=== PATIENT | female | born 1950 | race Caucasian/White ===

== ENCOUNTER 2018-08-27 10:17 | Outpatient (CLI) | payer OTHER, SELFPAY ==
[2018-08-27 13:00] LABS: Iron 78 ug/dL (50-175); Total Iron Binding Capacity 281 ug/dL (250-450); Transferrin Sat 28 % (15-50)
[2018-08-27 13:25] LABS: ALT 21 U/L (12-78); AST 17 U/L (15-37); Albumin 3.9 g/dL (3.4-5.0); Alkaline Phosphatase 97 U/L (46-116); Anion Gap 8.8 mmol/L (3-11); BUN 15 mg/dL (7-18); Bilirubin, Total 0.4 mg/dL (0.2-1.0); CO2 29.2 mmol/L (21.0-32.0); CREATININE 0.88 mg/dL (0.55-1.02); Chloride 104 mmol/L (98-107); Ferritin 148 ng/mL (8-388); Glucose 118 mg/dL (70-100); Sodium 142 mmol/L (136-145); TSH 2.17 uIU/mL (0.358-3.74); Total Protein 7.4 g/dL (6.4-8.2); Vitamin B12 394 pg/mL (193-986)
== END 2018-08-27 10:37 ==
PROVIDERS: PCP Family Medicine; Visit Provider Family Medicine
DX: Z86.2 Personal history of diseases of the blood and blood-forming organs and certain disorders involving the immune mechanism (principal); Z98.890 Other specified postprocedural states; E05.90 Thyrotoxicosis, unspecified without thyrotoxic crisis or storm
CPT/HCPCS: 36415; 80053; 82607; 82728; 83540; 83550; 84443

== ENCOUNTER 2019-09-04 01:42 | Outpatient (CLI) | payer OTHER, SELFPAY ==
--- NOTE | 2019-09-04 07:30 | DI.MAMMO_ITS ---
EXAM: MAMMO SCREENING CLINICAL HISTORY: screening,Z12.39 TECHNIQUE: Mammograms were interpreted according to the usual protocol including computer analysis w S B E CAD system, tomosynthesis and C-view imaging. COMPARISON: FINDINGS: The breasts are moderate density with fairly symmetrical distribution of fibroglandular tissue. No d ominant mass is identified in either breast. There is a new group of microcalcifications of the retr oareolar portion of the right breast, these appear to be mostly punctate but are not ideally visualiz ed. Additional magnification spot compression views of this area are requested for further evaluatio n. No other significant change in appearance comparison with prior studies including August 2017. IMPRESSION: New indeterminate group of microcalcifications of the retroareolar portion of the right breast. [place] tional mammographic views breast ultrasound requested as described above. BI-RADS Category 0 - Assessment Incomplete: Need additional imaging evaluation Breast Density - Category B - Scattered areas of fibroglandular density
--- NOTE | 2019-09-04 08:00 | DI.CTLCSR_ITS ---
EXAM: CT CHEST LUNG CANCER SCREEN CLINICAL HISTORY: Screening for lung cancer,current smoker, F17.210 TECHNIQUE: COMPARISON: No exams were available for comparison FINDINGS: CT examination of the chest was performed utilizing low-dose lung cancer screening protocol. There a ppear to be changes of moderate central lobular emphysema. There are scattered minimal ground-glass opacities. Additionally there is a 23 millimeter in diameter ground-glass opacity of the right upper lobe with a 4 millimeter solid nodular component. This would be categorized as a part solid nodule, lung rads category 3. No additional suspicious nodules seen. Tracheobronchial tree appears intact. No mediastinal or master r adenopathy. No pleural effusion. Images obtained through the upper abdomen show unremarkable appe arance of visualized portions of liver spleen right and left adrenals. IMPRESSION: Part solid nodule of the right upper lobe, 23 millimeter ground-glass component, 4 millimeter solid n odular component. Lung RADS Cat 3 - Probably Benign: Probably benign finding(s) - short term follow-up suggested; inclu de nodules with a low likelihood of becoming a clinically active cancer. Six-month follow-up LDCT re commended.
== END 2019-09-04 02:02 ==
PROVIDERS: PCP Family Medicine; Visit Provider Family Medicine
DX: Z12.31 Encounter for screening mammogram for malignant neoplasm of breast (principal); R92.8 Other abnormal and inconclusive findings on diagnostic imaging of breast; Z12.2 Encounter for screening for malignant neoplasm of respiratory organs; F17.210 Nicotine dependence, cigarettes, uncomplicated; J98.4 Other disorders of lung; J43.8 Other emphysema
CPT/HCPCS: 77063; 77067; G0297

== ENCOUNTER 2019-09-09 03:07 | Outpatient (CLI) | payer OTHER, SELFPAY ==
[2019-09-09 09:25] LABS: ALT 23 U/L (14-59); AST 19 U/L (15-37); Albumin 3.8 g/dL (3.4-5.0); Alkaline Phosphatase 87 U/L (46-116); Anion Gap 7.2 mmol/L (3-11); BUN 17 mg/dL (7-18); Bilirubin, Total 0.3 mg/dL (0.2-1.0); CO2 28.8 mmol/L (21.0-32.0); Calcium 8.7 mg/dL (8.5-10.1); Calculated LDL 123 mg/dL (<100); Chloride 104 mmol/L (98-107); Cholesterol 194 mg/dL (<200); Glucose 132 mg/dL (74-106); HDL Cholesterol 39 mg/dL (40-60); Potassium 4.5 mmol/L (3.5-5.1); Sodium 140 mmol/L (136-145); TSH 1.69 uIU/mL (0.36-3.74); Triglyceride 162 mg/dL (<150)
== END 2019-09-09 03:27 ==
PROVIDERS: PCP Family Medicine; Visit Provider Family Medicine
DX: I10 Essential (primary) hypertension (principal); E05.90 Thyrotoxicosis, unspecified without thyrotoxic crisis or storm
CPT/HCPCS: 36415; 80053; 80061; 84443

== ENCOUNTER 2019-09-11 02:18 | Outpatient (CLI) | payer OTHER, SELFPAY ==
--- NOTE | 2019-09-11 | DI.MAMMO_ITS ---
EXAM: MG MAMMO SCREEN CALL BACK UNI CLINICAL HISTORY: F/U MAMMO, NEW GROUP OF MICROCALCIFICATIONS RT. TECHNIQUE: Craniocaudal and mediolateral oblique Full Field Digital Mammography views of the right b reast with Computer Aided Diagnosis followed by Tomosynthesis and right breast ultrasound. COMPARISON: US US BREAST RT LIMITED from 09/11/2019 FINDINGS: Mammography/Tomosynthesis: Masses/Architectural Distortion: None seen. Microcalcifictions: There is again seen a collection of punctate calcifications in the upper outer qu adrant of the right breast. No definite pleomorphism is seen at this time. Calcifications have incr eased in number compared to the prior examination from 2018. No associated soft tissue mass or archi tectural distortion is seen. Skin Thickening/Nipple Retraction: None. Right breast US: Echotexture: Normal appearance of the glandular tissue. Shadowing: No suspicious foci. Cyst: 0.3 cm cyst at the 10 o'clock position of the right breast 2 cm from the nipple. Solid lesions: There is a focus of glandular tissue at the 12 o'clock position 1 cm from the nipple. No suspicious mass is seen at this time. Ductal dilation: None. IMPRESSION: 1. No definite evidence of malignancy is noted at this time. 2. Follow-up mammogram and ultrasound in 3 months is recommended. 3. The findings were discussed with the patient on the date of the examination. BI-RADS Category 3 - Probably Benign Finding: Recommend follow-up mammography in 3 months Breast Density - Category B - Scattered areas of fibroglandular density A negative radiographic report should not delay biopsy if a dominant or clinically suspicious mass is present. Up to ten percent of cancers are not identified on mammography. A negative report may reinforce clinical impression. Adenosis and dense breasts may obscure an underlying neoplasm. False positive reports average 6 to 10%. Patient will receive a letter notifying them of these results.
== END 2019-09-11 02:38 ==
PROVIDERS: PCP Family Medicine; Visit Provider Family Medicine
DX: Z12.31 Encounter for screening mammogram for malignant neoplasm of breast (principal); R92.8 Other abnormal and inconclusive findings on diagnostic imaging of breast; N60.01 Solitary cyst of right breast; N60.81 Other benign mammary dysplasias of right breast
CPT/HCPCS: 76642; 77063; 77067

== ENCOUNTER 2019-10-11 02:21 | Outpatient (CLI) | payer OTHER, SELFPAY ==
[2019-10-11 13:01] LABS: Hemoglobin A1C 6.7 % (3.8-5.6)
[2019-10-11 13:03] LABS: Anion Gap 9.9 mmol/L (3-11); BUN 17 mg/dL (7-18); CO2 26.1 mmol/L (21.0-32.0); CREATININE 1.05 mg/dL (0.55-1.02); Calcium 9.1 mg/dL (8.5-10.1); Chloride 105 mmol/L (98-107); Estimated GFR 51.81 (mL/min/1.73m2); Glucose 112 mg/dL (74-106); Potassium 4.2 mmol/L (3.5-5.1); Sodium 141 mmol/L (136-145)
== END 2019-10-11 02:41 ==
PROVIDERS: PCP Family Medicine; Visit Provider Family Medicine
DX: E11.65 Type 2 diabetes mellitus with hyperglycemia (principal)
CPT/HCPCS: 36415; 80048; 83036

== ENCOUNTER 2019-12-11 05:31 | Outpatient (CLI) | payer OTHER, SELFPAY ==
[2019-12-11 13:22] LABS: Anion Gap 3.6 mmol/L (3-11); BUN 11 mg/dL (7-18); CO2 31.4 mmol/L (21.0-32.0); Calcium 8.6 mg/dL (8.5-10.1); Chloride 106 mmol/L (98-107); Estimated GFR 54.81 (mL/min/1.73m2); Glucose 110 mg/dL (74-106); Potassium 4.6 mmol/L (3.5-5.1); Sodium 141 mmol/L (136-145)
[2019-12-11 13:51] LABS: Hemoglobin A1C 6.2 % (<5.7)
== END 2019-12-11 05:51 ==
PROVIDERS: PCP Family Medicine; Visit Provider Family Medicine
DX: R73.9 Hyperglycemia, unspecified (principal)
CPT/HCPCS: 36415; 80048; 83036

== ENCOUNTER 2019-12-24 00:45 | Outpatient (CLI) | payer OTHER, SELFPAY ==
--- NOTE | 2019-12-24 | DI.MAMMO_ITS ---
EXAM: MG MAMMO DIAGNOSTIC UNI CLINICAL HISTORY: F/U ABNL MAMMO AND US, 3 MONTH F/U,R92.8,FOCUS OF GLANDULAR TISSUE TECHNIQUE: Spot compression views including C- View and tomographic imaging were performed. Spot ma gnification views were also performed for the pre previously noted calcifications in the subareolar t issue. COMPARISON: 2011 through 11 September 2019. FINDINGS: The breasts are composed of scattered fibroglandular densities, Breast Density category B. Spot magnification views were also performed. No suspicious masses or suspicious microcalcifications are seen. Benign, punctate calcifications are again noted. A biopsy marker clip is noted in the in ferior breast. . IMPRESSION: BI-RADS Category 2 - Benign Findings Yearly screening mammography is recommended. Breast Density - Category B, scattered fibroglandular densities.
== END 2019-12-24 01:05 ==
PROVIDERS: PCP Family Medicine; Visit Provider Family Medicine
DX: R92.8 Other abnormal and inconclusive findings on diagnostic imaging of breast (principal); R92.1 Mammographic calcification found on diagnostic imaging of breast
CPT/HCPCS: 77061; 77065; G0279

== ENCOUNTER 2020-02-13 00:43 | Outpatient (CLI) | payer OTHER, SELFPAY ==
--- NOTE | 2020-02-13 06:15 | DI.CT_ITS ---
EXAM: CT CHEST WO CLINICAL HISTORY: 6 mo f/u OF ABNORMAL TEST,NODULES TECHNIQUE: Imaging Protocol: Axial computed tomography images with coronal and sagittal reformatted images were created and reviewed CONTRAST MATERIAL: No IV contrast COMPARISON: CT CT CHEST LUNG CANCER SCREEN from 09/04/2019 FINDINGS: Lungs: There is again noted the previously described ground-glass infiltrate in the right upper lobe which show an exhibits minimal change from the prior study and there is 2nd distal smaller 4 x 5 mill imeter ground-glass nodular infiltrate in the right upper lobe just anterior to this finding which is also unchanged.. There are no new additional ground-glass infiltrates in either lung field. No new confluent infiltrates.. No pleural effusions. No significant findings in trachea mainstem bronchi. No bronchiectasis. Mediastinum: There is no obvious hilar nor mediastinal evident on this noninfused study. The thyroid gland is again noted be enlarged. No axillary adenopathy. Cardiac: Heart size upper normal. There is no pericardial effusion. Caliber of the thoracic aorta i s within normal limits. The lower most images of this chest study reveal no obvious adrenal masses. However, there is a subt le area of hypodensity in the partially visualize right hepatic lobe noted which measures approximate ly 3.0 x 2.3 centimetres, of difficult to evaluate on a noninfused study. Osseous: There are no lytic osseous lesions identified. IMPRESSION: Relatively stable appearance of the previously described ground-glass nodular infiltrate in the right upper lobe. There is also a 2nd smaller ground-glass nodular infiltrate just anterior to this findi ng, also in the right upper lobe and also unchanged. Despite absence of obvious progression and abse nce of in new nodules these right upper lobe findings are still suspicious and require close follow-u p to rule out neoplasm. There are no pleural effusions and no obvious intrathoracic adenopathy evident on this noninfused jessica dy. Very subtleabnormal 3 x 2.3 centimeter area and in the right hepatic lobe incidentally noted, very di fficult to evaluate without IV contrast. This also requires close follow-up to rule out hepatic lesi on at this level. There are no osseous lesions. RADIATION DOSE DELIVERED: 73.65mGy.cm Total DLP DATA REPOSITORY: All CT scans at this facility are submitted to the National Radiology Data Registry (NRDR) Dose Index Registry (DIR) with the [employer] (ACR). RADIATION OPTIMIZATION: All CT scans at this facility use at least one of these dose optimization te chniques: automated exposure control; mA and/or kV adjustment per patient size (includes targeted exa ms where dose is matched to clinical indication); or iterative reconstruction.
== END 2020-02-13 01:03 ==
PROVIDERS: PCP Family Medicine; Visit Provider Family Medicine
DX: R91.8 Other nonspecific abnormal finding of lung field (principal); R93.89 Abnormal findings on diagnostic imaging of other specified body structures
CPT/HCPCS: 71250

== ENCOUNTER 2020-03-10 00:58 | Outpatient (CLI) | payer OTHER, SELFPAY ==
--- NOTE | 2020-03-10 07:00 | DI.US_ITS ---
EXAM: US ABDOMEN CLINICAL HISTORY: subtle abnormal area R hepatic lobe on CT,r91.8 TECHNIQUE: Ultrasound abdomen performed using standard protocol. COMPARISON: CT CT CHEST LUNG CANCER SCREEN from 09/04/[address] CHEST LUNG CANCER SCREEN from 09/04/[address] CHEST WO from 02/13/2020 FINDINGS: LIVER: Normal size and echogenicity. There is a 3.7 x 1.7 x 2.1 centimeter mildly hyperechoic lesion in the posterior right lobe of the liver, corresponding to the abnormality seen on CT. The findings may represent a hemangioma.. GALLBLADDER: No evidence of cholelithiasis. No evidence of wall thickening. No pericholecystic fluid identified. 2 millimeter polyp near the neck. SANTOYO'S SIGN: Negative. BILIARY SYSTEM: No intrahepatic or extrahepatic biliary ductal dilation. KIDNEYS: Kidneys are symmetric in size. No evidence of renal calculi. No evidence of hydronephrosis. No renal mass or cyst identified. PANCREAS: Normal where visualized. SPLEEN: Not enlarged. ABDOMINAL AORTA AND IVC: Visualized portions normal caliber. ASCITES: None seen. IMPRESSION: 3.7 centimeter hyperechoic liver lesion may represent a hemangioma. Multi phase contrast enhanced CT could be considered for further evaluation. DATA REPOSITORY:
[2020-03-10 09:09] LABS: Hemoglobin A1C 6.4 % (<5.7)
[2020-03-10 09:44] LABS: ALT 19 U/L (14-59); AST 14 U/L (15-37); Albumin 3.9 g/dL (3.4-5.0); Alkaline Phosphatase 97 U/L (46-116); Anion Gap 5.5 mmol/L (3-11); BUN 15 mg/dL (7-18); Bilirubin, Direct 0.08 mg/dL (0.00-0.20); Bilirubin, Total 0.4 mg/dL (0.2-1.0); CO2 30.5 mmol/L (21.0-32.0); CREATININE 0.99 mg/dL (0.55-1.02); Calcium 8.8 mg/dL (8.5-10.1); Chloride 105 mmol/L (98-107); Estimated GFR 55.45 (mL/min/1.73m2); Glucose 123 mg/dL (74-106); Potassium 4.4 mmol/L (3.5-5.1); Sodium 141 mmol/L (136-145); Total Protein 7.2 g/dL (6.4-8.2)
== END 2020-03-10 01:18 ==
LOC: DI 08:34 → LBO 08:37 → DI 08:41
PROVIDERS: PCP Family Medicine; Visit Provider Family Medicine
DX: K76.89 Other specified diseases of liver (principal); I10 Essential (primary) hypertension; R73.9 Hyperglycemia, unspecified
CPT/HCPCS: 36415; 80053; 80076; 76700; 83036

== ENCOUNTER 2020-07-20 08:49 | Outpatient (CLI) | payer OTHER, SELFPAY ==
[2020-07-20 11:42] LABS: Hemoglobin A1C 6.5 % (<5.7)
[2020-07-20 11:43] LABS: ALT 21 U/L (14-59); AST 16 U/L (15-37); Albumin 4.1 g/dL (3.4-5.0); Alkaline Phosphatase 103 U/L (46-116); Anion Gap 9.3 mmol/L (3-11); BUN 18 mg/dL (7-18); Bilirubin, Total 0.4 mg/dL (0.2-1.0); CO2 28.7 mmol/L (21.0-32.0); Calcium 9.1 mg/dL (8.5-10.1); Chloride 106 mmol/L (98-107); Estimated GFR 54.66 (mL/min/1.73m2); Glucose 127 mg/dL (74-106); Sodium 144 mmol/L (136-145); Total Protein 7.7 g/dL (6.4-8.2)
[2020-07-20 12:01] LABS: Calculated LDL 144 mg/dL (<100); Cholesterol 213 mg/dL (<200); HDL Cholesterol 47 mg/dL (40-60); Triglyceride 113 mg/dL (<150)
== END 2020-07-20 08:50 | disposition home or self-care (01) ==
LOC: LOS 08:49
PROVIDERS: PCP Family Medicine; Visit Provider Family Medicine
DX: I10 Essential (primary) hypertension (principal); E11.65 Type 2 diabetes mellitus with hyperglycemia
CPT/HCPCS: 36415; 80053; 80061; 83036

== ENCOUNTER 2020-08-18 02:22 | Outpatient (CLI) | payer OTHER, SELFPAY ==
--- NOTE | 2020-08-18 06:30 | DI.US_ITS ---
Exam(s) US ABDOMEN EXAM: US ABDOMEN CLINICAL HISTORY: 3.7cm hyperechoic post.right lobe of liver,LIVER LESION,K76.9 TECHNIQUE: Ultrasound abdomen performed using standard protocol. COMPARISON: CT CT CHEST WO from 02/13/2020 US US ABDOMEN from 03/10/2020 FINDINGS: ABDOMINAL AORTA AND IVC: Visualized portions normal caliber. PANCREAS: Normal where visualized. LIVER: The liver shows diffuse increased echogenicity suggesting hepatic steatosis. There is again s een a echogenic mass in the right lobe of the liver. It measures 3.7 x 3.3 x 2.5 cm on the current e xamination. This discrepancy in measurements may be in part be due to measuring technique. But an i ncrease in size cannot be excluded. Hepatopedal flow in the Portal Vein. The liver measures 13.2 cm in length. GALLBLADDER: No evidence of cholelithiasis. No evidence of wall thickening. No pericholecystic fluid identified. BILIARY SYSTEM: Common bile duct measures < 7 mm. No intrahepatic biliary ductal dilation. SANTOYO'S SIGN: Negative. KIDNEYS: Kidneys are symmetric in size. No evidence of renal calculi. No evidence of hydronephrosis. No renal mass or cyst identified. SPLEEN: Not enlarged. ASCITES: None seen. IMPRESSION: Echogenic mass is again seen in the right lobe of the liver. Further evaluation with a CT scan of th e abdomen using the hepatic hemangioma protocol is recommended. DATA REPOSITORY:
== END 2020-08-18 02:42 ==
PROVIDERS: PCP Family Medicine; Visit Provider Family Medicine
DX: K76.89 Other specified diseases of liver (principal); K76.0 Fatty (change of) liver, not elsewhere classified
CPT/HCPCS: 76700

== ENCOUNTER 2020-09-24 01:36 | Outpatient (CLI) | payer OTHER, SELFPAY ==
--- NOTE | 2020-09-24 07:00 | DI.CT_ITS ---
Exam(s) CT ABDOMEN WO/W EXAM: CT ABDOMEN WO/W CLINICAL HISTORY: 3.7cm hyperechoic liver lesion seen on ultrasound,k76.9. TECHNIQUE: Imaging Protocol: Axial computed tomography images with coronal and sagittal reformatted images were created and reviewed CONTRAST MATERIAL: Intravenous: Omnipaque 350 Contrast volume:100 ml Oral: None COMPARISON: US US ABDOMEN from 08/18/2020 FINDINGS: VISUALIZED LUNG BASES: There is no ascites. LIVER: There is a lesion in the right hepatic lobe which corresponds to that described on the recent ultrasound. The enhancement pattern is consistent with this being a cavernous hemangioma. There is also 2nd smaller finding in the right hepatic lobe slightly lower down and more medially located. Th is also exhibits dense min pattern consistent with a benign hemangioma. There are no other focal hep atic findings. No dilatation of intrahepatic ducts GALLBLADDER/BILIARY: No obvious gallbladder pathology. CBD is not dilated. PANCREAS: No evidence of pancreatic mass nor dilatation of the pancreatic duct. SPLEEN: Spleen is not enlarged. There are no intrasplenic lesions. Splenic and portal veins are vela nt. ADRENALS: There are no significant adrenal masses. KIDNEYS: No calculi nor hydronephrosis. No solid renal masses. No cysts evident. ABDOMINAL AORTA: Abdominal aorta is not enlarged. LYMPH NODES: There is no retroperitoneal nor paraaortic adenopathy. ABDOMINAL WALL: No evidence of significant anterior abdominal wall hernia. GI: There is no evidence of bowel obstruction. OSSEOUS: No significant osseous lesions. IMPRESSION: 1. There are 2 findings in the right hepatic lobe as described above. Both exhibit enhancement denise cteristics of benign hemangiomas. 2. To be prudent I recommend repeat ultrasound examination in 6 months to ensure size stability. 3. No other focal incidental findings in the abdomen and no ascites. 4. Please note that the pelvis was not scanned. RADIATION DOSE DELIVERED: 1,309.52mGy.cm Total DLP DATA REPOSITORY: All CT scans at this facility are submitted to the National Radiology Data Registry (NRDR) Dose Index Registry (DIR) with the [employer] (ACR). RADIATION OPTIMIZATION: All CT scans at this facility use at least one of these dose optimization te chniques: automated exposure control; mA and/or kV adjustment per patient size (includes targeted exa ms where dose is matched to clinical indication); or iterative reconstruction.
[2020-09-24] MEDS: Omnipaque 350 MG/ML 100 ML BTL IV (09:01)
[2020-09-24] MEDS: Normal Saline - Diluent 50 ML VIAL IV (09:02)
== END 2020-09-24 01:56 ==
PROVIDERS: PCP Family Medicine; Visit Provider Family Medicine
DX: D18.09 Hemangioma of other sites (principal)
CPT/HCPCS: 74170; J3490

== ENCOUNTER 2020-11-05 04:06 | Outpatient (CLI) | payer OTHER, SELFPAY ==
[2020-11-05] MEDS: Albuterol HFA 18 GM 200 PUFF INH IH (08:53)
[2020-11-05] MEDS: Inhaler, Assist Device 1 EACH MC (08:53)
--- NOTE | 2020-11-06 11:38 | PFT_ITS ---
Date of service: 11/05/20 Time of Service: 07:59 Pulmonary Function Test Result Requesting Provider Jeremiah Interpretation Spirometry: There is no airflow limitation. The FVC is reduced. There was a significant bronchodilator effect. The flow volume loop and volume-time curve are suggestive of airflow limitation. Lung Volumes: There is some evidence of air trapping but otherwise lung volumes are normal. Diffusion Capacity: Diffusion is normal. Airway Pressure: Airways resistance is normal. Impression There is mildly reduced FVC with normal lung volumes as well as a significant bronchodilator effect. Given the appearance of the flow volume loop and volume- time curve there may be some degree of airflow limitation present. Clinical Correlation therefore is recommended.
== END 2020-11-05 04:07 | disposition home or self-care (01) ==
LOC: RT 04:06
PROVIDERS: PCP Family Medicine; Visit Provider Student in an Organized Health Care Education/Training Program
DX: R91.8 Other nonspecific abnormal finding of lung field (principal); F17.210 Nicotine dependence, cigarettes, uncomplicated
CPT/HCPCS: 94060; 94726; 94729

== ENCOUNTER 2020-11-09 01:28 | Outpatient (CLI) | payer OTHER, SELFPAY ==
--- NOTE | 2020-11-09 07:30 | DI.MAMMO_ITS ---
Exam(s) MAMMO SCREENING EXAM: MAMMO SCREENING CLINICAL HISTORY: screening,Z12.39 TECHNIQUE: Bilateral full field digital CC and MLO mammographic images were obtained with 3D tomosyn thesis and utilizing computer aided detection (CAD). COMPARISON: Available for comparison. FINDINGS: Masses/Architectural Distortion: None seen. A biopsy clip is again seen in the outer left breast. Microcalcifications: No suspicious pleomorphic-type are seen. Skin Thickening/Nipple Retraction: None. IMPRESSION: 1. No significant interval change with no specific features of malignancy noted. 2. Unless there is more urgent need, screening mammography is recommended, as per [employer] guidelines. BI-RADS Category 1 - Negative Breast Density - Category B - Scattered areas of fibroglandular density Breast density category C or D implies that the patient has dense breast tissue. Dense breast tissue is very common and is not abnormal but dense breast tissue can make it harder to find cancer on a ma mmogram. Also, dense breast tissue may increase their breast cancer risk. This information about the result of the mammogram report was provided to the patient to raise their awareness. Use this report when you speak with the patient about their risks for breast cancer, which includes their family hist ory. At that time, you may recommend for more screening tests (Ultrasound or MRI) as they might be us eful based on their risk. A negative radiographic report should not delay biopsy if a dominant or clinically suspicious mass is present. Up to ten percent of cancers are not identified on mammography. A negative report may reinforce clinical impression. Adenosis and dense breasts may obscure an underlying neoplasm. False positive reports average 6 to 10%. Patient will receive a letter notifying them of these results.
== END 2020-11-09 01:48 ==
PROVIDERS: PCP Family Medicine; Visit Provider Family Medicine
DX: Z12.31 Encounter for screening mammogram for malignant neoplasm of breast (principal)
CPT/HCPCS: 77063; 77067

== ENCOUNTER 2020-11-09 03:54 | Outpatient (CLI) | payer OTHER, SELFPAY ==
[2020-11-09 09:53] LABS: COMMENT (LAB VIEW ONLY) 168.68 mg/dL; Microalb ug/mg Crea 7.8 ug/mg Cr
[2020-11-09 10:25] LABS: Hemoglobin A1C 6.3 % (<5.7)
[2020-11-09 10:45] LABS: Calculated LDL 108 mg/dL (<100); Cholesterol 171 mg/dL (<200); HDL Cholesterol 43 mg/dL (40-60); TSH (W/Ref FT4) 1.65 uIU/mL (0.36-3.74); Triglyceride 103 mg/dL (<150)
== END 2020-11-09 03:55 | disposition home or self-care (01) ==
LOC: LBO 03:54
PROVIDERS: PCP Family Medicine; Visit Provider Family Medicine
DX: E11.9 Type 2 diabetes mellitus without complications (principal); E05.90 Thyrotoxicosis, unspecified without thyrotoxic crisis or storm
CPT/HCPCS: 36415; 80061; 82043; 82570; 83036; 84443

== ENCOUNTER 2021-03-03 01:32 | Outpatient (CLI) | payer MEDICARE, SELFPAY ==
--- NOTE | 2021-03-03 06:45 | DI.CTLCSR_ITS ---
Exam(s) CT CHEST LUNG CANCER SCREEN EXAM: CT CHEST LUNG CANCER SCREEN CLINICAL HISTORY: Screening for lung cancer,current smoker, f17.210 TECHNIQUE: Imaging Protocol: Axial computed tomography images with coronal and sagittal reformatted images were created and reviewed COMPARISON: CT CT CHEST WO from 02/13/2020 FINDINGS: Tracheobronchial tree: Patent where visualized. Pulmonary parenchyma: The ground-glass opacity in the superior aspect of the right upper lobe is unch anged. There also persistent small ground-glass nodules distributed in the lungs predominantly in th e upper lobes. The largest measures 0.5 cm. No focal consolidating infiltrates. Lung Nodules: Please see above. Mediastinum and Gala: No dominant adenopathy or fluid collection. The esophagus is unremarkable. Thyroid gland: There does appear to be diffuse enlargement of the thyroid gland. No discrete nodule is seen on this noncontrast examination. Lymph nodes: Unremarkable. Pleura: No effusion or pneumothorax. Heart: The heart is not dilated. No coronary artery calcifications are seen. No pericardial effusion . Aorta: Thoracic aorta non-dilated.Mild atherosclerosis. Upper abdomen: Unremarkable. Soft Tissues: Unremarkable. Bones: Within normal limits. IMPRESSION: Persistent are ground-glass opacity in the right upper lobe. Persistent small ground-glass nodules. Lung RADS Cat 2 - Benign Appearance / Behavior: Nodules with a very low likelihood of becoming a clin ically active cancer due to size or lack of growth Lung-RADS 1.0 CATEGORIES: Category 0 - Prior chest CT exam(s) being located for comparison. Category 1 - Annual screening in 12 months. No nodules or definitely benign nodules. Category 2 - Annual screening in 12 months. Benign appearance. Nodules with low likelihood of becomin g active cancer. Category 3 - 6-month follow-up. Probably benign. Short-term follow-up suggested. Nodules with low lik elihood of becoming active cancer. Category 4A - 3-month follow-up and CT/PET if >8 mm in size. Suspicious finding. Findings which requi re additional testing. Category 4B - Findings which require additional testing and tissue sampling. Suspicious finding. Modifier S- Potentially clinically significant finding. (Non lung cancer) RADIATION DOSE DELIVERED: 75.05mGy.cm Total DLP 1.84mGy CTDIvol 75.05mGy.cm Total DLP 1.84mGy CTDIvol DATA REPOSITORY: All CT scans at this facility are submitted to the National Radiology Data Registry (NRDR) Dose Index Registry (DIR) with the [employer] (ACR). RADIATION OPTIMIZATION: All CT scans at this facility use at least one of these dose optimization te chniques: automated exposure control; mA and/or kV adjustment per patient size (includes targeted exa ms where dose is matched to clinical indication); or iterative reconstruction.
== END 2021-03-03 01:52 ==
PROVIDERS: PCP Family Medicine; Visit Provider Student in an Organized Health Care Education/Training Program
DX: Z12.2 Encounter for screening for malignant neoplasm of respiratory organs (principal); F17.210 Nicotine dependence, cigarettes, uncomplicated; R91.8 Other nonspecific abnormal finding of lung field; J98.4 Other disorders of lung
CPT/HCPCS: 71271

== ENCOUNTER 2021-04-09 04:20 | Outpatient (CLI) | payer MEDICARE, SELFPAY ==
[2021-04-09 09:02] LABS: Bilirubin Negative (Negative); Blood Moderate (Negative); Clarity Clear (Clear); Glucose Negative (Negative); Ketones Negative (Negative); Leukocyte Esterase Trace (Negative); Nitrite Negative (Negative); Specific Gravity >= 1.030 (1.005-1.025); Urobilinogen 0.2 EU/dL (Up TO 0.2)
[2021-04-09 09:10] LABS: Bacteria Moderate HPF (Negative); C & S Indicated? Yes; Casts Negative LPF (Negative); Crystals Negative HPF (Negative); Epithelial Cells Few HPF (Negative); Hemoglobin A1C 6.4 % (<5.7); Mucus Negative (Negative)
[2021-04-09 11:09] LABS: Anion Gap 7.7 mmol/L (3-11); BUN 18 mg/dL (7-18); CO2 29.3 mmol/L (21.0-32.0); CREATININE 0.9 mg/dL (0.55-1.02); Calcium 8.6 mg/dL (8.5-10.1); Calculated LDL 81 mg/dL (<100); Chloride 104 mmol/L (98-107); Cholesterol 144 mg/dL (<200); Glucose 107 mg/dL (74-106); HDL Cholesterol 51 mg/dL (40-60); Potassium 4.3 mmol/L (3.5-5.1); Sodium 141 mmol/L (136-145); Triglyceride 63 mg/dL (<150)
[2021-04-09 11:12] LABS: COMMENT (LAB VIEW ONLY) 168.26 mg/dL
== END 2021-04-09 04:21 | disposition home or self-care (01) ==
LOC: LBO 04:21
PROVIDERS: Family Medicine; PCP Family Medicine; Visit Provider Family Medicine
DX: E11.9 Type 2 diabetes mellitus without complications; I10 Essential (primary) hypertension; E78.5 Hyperlipidemia, unspecified; N39.0 Urinary tract infection, site not specified
CPT/HCPCS: 36415; 80048; 80061; 87077; 81003; 81015; 82043; 82570; 83036; 87086; 87186

== ENCOUNTER 2021-10-04 04:14 | Outpatient (CLI) | payer MEDICARE, SELFPAY ==
[2021-10-04 12:20] LABS: HCT 43.1 % (36.0-46.0); HGB 13.8 g/dL (11.2-15.7); MCH 30.1 pg (27.0-33.0); MCV 94 fL (80-95); Platelet Count 289 10^3/uL (130-400); RBC 4.58 10^6/uL (3.93-5.22); RDW 13.1 % (11.7-14.6); RDW-SD 45.1 fL; WBC 9.28 10^3/uL (4.4-10.8)
[2021-10-04 12:45] LABS: ALT 18 U/L (14-59); AST 23 U/L (15-37); Alkaline Phosphatase 78 U/L (46-116); Anion Gap 8.3 mmol/L (3-11); BUN 18 mg/dL (7-18); Bilirubin, Total 0.4 mg/dL (0.2-1.0); CO2 27.7 mmol/L (21.0-32.0); Calcium 9.1 mg/dL (8.5-10.1); Chloride 104 mmol/L (98-107); FREE T4 0.88 ng/dL (0.76-1.46); Glucose 105 mg/dL (74-106); Hemoglobin A1C 6.4 % (<5.7); Potassium 4.1 mmol/L (3.5-5.1); Sodium 140 mmol/L (136-145); TSH 2.05 uIU/mL (0.36-3.74); Total Protein 7.7 g/dL (6.4-8.2)
[2021-10-04 13:04] LABS: Calculated LDL 101 mg/dL (<100); Cholesterol 172 mg/dL (<200); HDL Cholesterol 52 mg/dL (40-60); Triglyceride 97 mg/dL (<150)
== END 2021-10-04 04:15 | disposition home or self-care (01) ==
LOC: LOS 04:14
PROVIDERS: PCP Family Medicine; Visit Provider Family Medicine
DX: I10 Essential (primary) hypertension (principal); E11.9 Type 2 diabetes mellitus without complications; E05.90 Thyrotoxicosis, unspecified without thyrotoxic crisis or storm
CPT/HCPCS: 36415; 80053; 80061; 85027; 83036; 84439; 84443

== ENCOUNTER → 2021-11-03 01:22 | Outpatient (CLI) | payer MEDICARE, SELFPAY ==
--- NOTE | 2021-11-03 06:45 | DI.US_ITS ---
Exam(s) US ABDOMEN LIMITED EXAM: US ABDOMEN LIMITED CLINICAL HISTORY: f/u liver lesion,k76.9 TECHNIQUE: Ultrasound abdomen performed using standard protocol. COMPARISON: US US ABDOMEN from 08/18/2020 FINDINGS: There is no ascites evident. LIVER: In the right hepatic there is a subtle hyperechoic area measuring approximately 3 x 3 cm. Pos sible hemangioma. GALLBLADDER/BILIARY: There are no gallstones. No gallbladder wall edema nor pericholecystic fluid. The common hepatic duct isnot dilated, measuring 3-4mm at the level of vianey hepatis. PANCREAS: Pancreatic head and neck appear unremarkable. Pancreatic body and tail not well seen due t o overlying bowel gas RIGHT KIDNEY:No evidence of solid mass, calculus, nor hydronephrosis. No cortical cysts evident. IMPRESSION: 1. No evidence of cholelithiasis nor dilatation of the biliary tree. 2. There is a 3 x 3 cm area in the right hepatic lobe which appears relatively hyperechoic compared to surrounding parenchyma. Either represents focal fatty change or possible 3 cm hemangioma. This c an be further studied with contrast infused MRI using hemangioma protocol. 3. There is no ascites. DATA REPOSITORY:
== END ==
PROVIDERS: PCP Family Medicine; Visit Provider Family Medicine
DX: K76.9 Liver disease, unspecified (principal)
CPT/HCPCS: 76705

== ENCOUNTER → 2021-12-24 00:55 | Outpatient (CLI) | payer MEDICARE, SELFPAY ==
--- NOTE | 2021-12-24 11:15 | DI.DEXA_ITS ---
Exam(s) XR DEXA BONE DENSITY W/WO RACHEL EXAM: XR DEXA BONE DENSITY W/WO RACHEL CLINICAL HISTORY: screening FOR OSTEOPOROSIS Z78.0 POST MENOPAUSAL TECHNIQUE: COMPARISON: Comparison examination is 06/11/2007. FINDINGS: Lateral Spine Image: Unremarkable. No compression deformities identified. Left hip: Total T-Score: -1.7. This compares to -1.4 on the prior examination. Total Z-Score: -0.1 T- and Z-scores: Findings are consistent with osteopenia. Lumbar Spine: Total T-Score: -2.3. This compares to -1.8 on the prior examination. Total Z-Score: 0.0 T- and Z-scores: Findings are consistent with osteopenia. IMPRESSION: Osteopenia in the lumbar spine and left hip.
--- NOTE | 2021-12-24 11:25 | DI.MAMMO_ITS ---
Exam(s) MAMMO SCREENING EXAM: MAMMO SCREENING CLINICAL HISTORY: screening Z12.39 TECHNIQUE: Bilateral full field digital CC and MLO mammographic images were obtained with 3D tomosyn thesis and utilizing computer aided detection (CAD). COMPARISON: Available for comparison. FINDINGS: Masses/Architectural Distortion: None seen. Biopsy clips are seen in both breasts. Microcalcifications: No suspicious pleomorphic-type are seen. Skin Thickening/Nipple Retraction: None. IMPRESSION: 1. No significant interval change with no specific features of malignancy noted. 2. Unless there is more urgent need, screening mammography is recommended, as per [employer] guidelines. BI-RADS Category 1 - Negative Breast Density - Category B - Scattered areas of fibroglandular density Breast density category C or D implies that the patient has dense breast tissue. Dense breast tissue is very common and is not abnormal but dense breast tissue can make it harder to find cancer on a ma mmogram. Also, dense breast tissue may increase their breast cancer risk. This information about the result of the mammogram report was provided to the patient to raise their awareness. Use this report when you speak with the patient about their risks for breast cancer, which includes their family hist ory. At that time, you may recommend for more screening tests (Ultrasound or MRI) as they might be us eful based on their risk. A negative radiographic report should not delay biopsy if a dominant or clinically suspicious mass is present. Up to ten percent of cancers are not identified on mammography. A negative report may reinforce clinical impression. Adenosis and dense breasts may obscure an underlying neoplasm. False positive reports average 6 to 10%. Patient will receive a letter notifying them of these results.
== END ==
PROVIDERS: PCP Family Medicine; Visit Provider Family Medicine
DX: Z12.31 Encounter for screening mammogram for malignant neoplasm of breast (principal); Z78.0 Asymptomatic menopausal state; Z13.820 Encounter for screening for osteoporosis; M85.89 Other specified disorders of bone density and structure, multiple sites
CPT/HCPCS: 77063; 77067; 77080

== ENCOUNTER → 2022-03-08 01:27 | Outpatient (CLI) | payer MEDICARE, SELFPAY ==
--- NOTE | 2022-03-08 08:29 | DI.CTLCSR_ITS ---
Exam(s) CT CHEST LUNG CANCER SCREEN EXAM: CT CHEST LUNG CANCER SCREEN CLINICAL HISTORY: Screening for lung cancer,CURRENT SMOKER, F17.210. TECHNIQUE: Imaging Protocol: Low Dose Technique CONTRAST MATERIAL: None COMPARISON: CT CT CHEST LUNG CANCER SCREEN from 03/03/2021 FINDINGS: CHEST: LUNGS: In the right upper lobe the previously described ground-glass infiltrate measures 2.5 by 1.8 c m, unchanged. There is also an unchanged 6 millimeter ground-glass nodular density in the right uppe r lobe located approximately 3 cm anterior to the above described infiltrate and also unchanged. Ano ther slightly smaller ground-glass nodular infiltrate is seen laterally in the right upper lobe. No new findings in the remainder of the right lung and no pleural effusion. There are no new left lung findings.. No new focal findings in the trachea and mainstem bronchi. No pleural effusions. MEDIASTINUM: There is no obvious hilar nor mediastinal adenopathy. Enlarged thyroid gland again note d. CARDIAC: Heart size is normal. In pericardial effusion again noted..Caliber of the thoracic aorta is within normal limits. OTHER: No adrenal masses. No splenomegaly. There is a subtle area abnormal hypodensity the right he patic lobe measuring approximately 2 x 2 cm. Not possible to accurately assess on this type of study . OSSEOUS: No significant osseous lesions.No fractures.. IMPRESSION: 1. There is continued stability of the previously described right upper lobe ground-glass nodular inf iltrates, the largest measuring approximately 2.5 x 1.8 cm. No obvious new intrathoracic adenopathy. 2. There is, however, subtle 2 cm hypodensity in the right hepatic lobe noted. Further imaging start ing with ultrasound recommended. 3. Lung RADS Cat 2S - Benign Appearance / Behavior: Nodules with a very low likelihood of becoming a clinically active cancer due to size or lack of growth HEPATIC FINDING DESCRIBED ABOVE. RECOMMEND ULTRASOUND NEXT STEP. Lung-RADS 1.0 CATEGORIES: Category 0 - Prior chest CT exam(s) being located for comparison. Category 1 - Annual screening in 12 months. No nodules or definitely benign nodules. Category 2 - Annual screening in 12 months. Benign appearance. Nodules with low likelihood of becomin g active cancer. Category 3 - 6-month follow-up. Probably benign. Short-term follow-up suggested. Nodules with low lik elihood of becoming active cancer. Category 4A - 3-month follow-up and CT/PET if >8 mm in size. Suspicious finding. Findings which requi re additional testing. Category 4B - Findings which require additional testing and tissue sampling. Category 4X - Category 3 or 4 nodules with additional features or imaging findings that increases the suspicion of malignancy. Modifier S- Potentially clinically significant findings (non lung cancer) RADIATION DOSE DELIVERED: 77.23mGy.cm Total DLP DATA REPOSITORY: All CT scans at this facility are submitted to the National Radiology Data Registry (NRDR) Dose Index Registry (DIR) with the [employer] (ACR). RADIATION OPTIMIZATION: All CT scans at this facility use at least one of these dose optimization te chniques: automated exposure control; mA and/or kV adjustment per patient size (includes targeted exa ms where dose is matched to clinical indication); or iterative reconstruction.
== END ==
PROVIDERS: PCP Family Medicine; Visit Provider Student in an Organized Health Care Education/Training Program
DX: F17.210 Nicotine dependence, cigarettes, uncomplicated (principal); Z12.2 Encounter for screening for malignant neoplasm of respiratory organs; R91.8 Other nonspecific abnormal finding of lung field
CPT/HCPCS: 71271

== ENCOUNTER 2022-04-15 01:14 | Outpatient (CLI) | payer MEDICARE, SELFPAY ==
[2022-04-15 12:55] LABS: COMMENT (LAB VIEW ONLY) 273.64 mg/dL; Microalb ug/mg Crea 7.5 ug/mg Cr
== END 2022-04-15 01:15 | disposition home or self-care (01) ==
LOC: LOS 01:14
PROVIDERS: PCP Family Medicine; Visit Provider Family Medicine
DX: E11.9 Type 2 diabetes mellitus without complications (principal)
CPT/HCPCS: 82043; 82570

== ENCOUNTER 2022-10-14 01:50 | Outpatient (CLI) | payer MEDICARE, SELFPAY ==
[2022-10-14 12:51] LABS: Hemoglobin A1C 6.7 % (<5.7)
[2022-10-14 12:55] LABS: ALT 18 U/L (14-59); AST 25 U/L (15-37); Albumin 3.7 g/dL (3.4-5.0); Alkaline Phosphatase 85 U/L (46-116); Anion Gap 6.5 mmol/L (3-11); BUN 13 mg/dL (7-18); Bilirubin, Total 0.4 mg/dL (0.2-1.0); CO2 28.5 mmol/L (21.0-32.0); Calcium 8.8 mg/dL (8.5-10.1); Chloride 104 mmol/L (98-107); Estimated GFR 59.49 (mL/min/1.73m2); Glucose 128 mg/dL (74-106); Potassium 4.8 mmol/L (3.5-5.1); Sodium 139 mmol/L (136-145); TSH (W/Ref FT4) 1.93 uIU/mL (0.36-3.74); Total Protein 7.4 g/dL (6.4-8.2)
== END 2022-10-14 01:51 | disposition home or self-care (01) ==
LOC: LOS 01:50
PROVIDERS: PCP Family Medicine; Visit Provider Family Medicine
DX: E03.9 Hypothyroidism, unspecified (principal); E11.9 Type 2 diabetes mellitus without complications
CPT/HCPCS: 36415; 80053; 83036; 84443

== ENCOUNTER → 2023-03-27 02:25 | Outpatient (CLI) | payer MEDICARE, SELFPAY ==
--- NOTE | 2023-03-27 08:55 | DI.CTLCSR_ITS ---
Exam(s) CT CHEST LUNG CANCER SCREEN EXAM: CT CHEST LUNG CANCER SCREEN CLINICAL HISTORY: Screening for lung cancer,current smoker, f17.210 TECHNIQUE: Imaging Protocol: Axial computed tomography images with coronal and sagittal reformatted images were created and reviewed. Low dose screening protocol. COMPARISON: CT CT CHEST LUNG CANCER SCREEN from 09/04/[address] ABDOMEN WO/W from 09/24/[address] CHEST LUNG CANCER SCREEN from 03/08/2022 FINDINGS: Tracheobronchial tree: No bronchiectasis or mucus plugging.. Enlarged thyroid again noted. Mediastinum and Gala: No dominant adenopathy or fluid collection. Pulmonary parenchyma: Stable size and appearance of ground-glass nodule in right upper lobe. Stable additional 6 millimeter ground-glass nodule. Stable small lateral right upper lobe ground-glass nodu le. Mild emphysematous changes. Pleura: No effusion. No pneumothorax. Heart: The heart is mildly dilated. No coronary artery calcifications are seen. Aorta: Thoracic aorta non-dilated. Upper abdomen: Unremarkable. Bones: Unremarkable for age. Soft Tissues: Unremarkable. IMPRESSION: Stable 2.3 centimeter nodule right upper lobe. Stable smaller nodules. No new findings. Lung RADS Cat 2 - Benign Appearance / Behavior: Nodules with a very low likelihood of becoming a clin ically active cancer due to size or lack of growth Lung-RADS 1.0 CATEGORIES: Category 0 - Prior chest CT exam(s) being located for comparison. Category 1 - Annual screening in 12 months. No nodules or definitely benign nodules. Category 2 - Annual screening in 12 months. Benign appearance. Nodules with low likelihood of becomin g active cancer. Category 3 - 6-month follow-up. Probably benign. Short-term follow-up suggested. Nodules with low lik elihood of becoming active cancer. Category 4A - 3-month follow-up and CT/PET if >8 mm in size. Suspicious finding. Findings which requi re additional testing. Category 4B - Findings which require additional testing and tissue sampling. Category 4X - Category 3 or 4 nodules with additional features or imaging findings that increases the suspicion of malignancy. Modifier S- Potentially clinically significant findings (non lung cancer) RADIATION DOSE DELIVERED: 75.31mGy.cm Total DLP DATA REPOSITORY: All CT scans at this facility are submitted to the National Radiology Data Registry (NRDR) Dose Index Registry (DIR) with the [employer] (ACR). RADIATION OPTIMIZATION: All CT scans at this facility use at least one of these dose optimization te chniques: automated exposure control; mA and/or kV adjustment per patient size (includes targeted exa ms where dose is matched to clinical indication); or iterative reconstruction.
== END ==
PROVIDERS: PCP Family Medicine; Visit Provider Student in an Organized Health Care Education/Training Program
DX: F17.210 Nicotine dependence, cigarettes, uncomplicated (principal); Z12.2 Encounter for screening for malignant neoplasm of respiratory organs; R91.1 Solitary pulmonary nodule
CPT/HCPCS: 71271

== ENCOUNTER → 2023-03-30 09:49 | Outpatient (BNVA) | payer MEDICARE, SELFPAY | PROVIDERS: PCP Family Medicine; Referring Provider Family Medicine; Visit Provider Student in an Organized Health Care Education/Training Program | DX: R91.8 Other nonspecific abnormal finding of lung field (principal) | CPT/HCPCS: 99214 ==

== ENCOUNTER 2023-04-21 13:19 | Outpatient (REF) | payer MEDICARE, SELFPAY ==
[2023-04-21 12:47] LABS: COMMENT (LAB VIEW ONLY) 221.67 mg/dL; Microalb ug/mg Crea 6.3 ug/mg Cr
== END 2023-04-21 13:20 | disposition home or self-care (01) ==
LOC: LBN 13:19
PROVIDERS: PCP Family Medicine; Visit Provider Family Medicine
DX: E11.9 Type 2 diabetes mellitus without complications (principal)
CPT/HCPCS: 82043; 82570

== ENCOUNTER → 2023-09-18 02:30 | Outpatient (CLI) | payer MEDICARE, SELFPAY ==
--- NOTE | 2023-09-18 07:15 | DI.CT_ITS ---
Exam(s) CT CHEST WO EXAM: CT CHEST WO CLINICAL HISTORY: assess solid component growth of nodule,r91.8 TECHNIQUE: Imaging Protocol: Axial computed tomography images with coronal and sagittal reformatted images were created and reviewed CONTRAST MATERIAL: Intravenous: Omnipaque 350 Contrast volume:structured data ml. COMPARISON: CT CT CHEST LUNG CANCER SCREEN from 09/04/[address] CHEST LUNG CANCER SCREEN from 03/03/[address] CHEST LUNG CANCER SCREEN from 03/27/2023 FINDINGS: Pulmonary parenchyma: No consolidation. Apical scarring. Stable area of ground-glass density in rig ht upper lobe. 5 millimeter nodular component is difficult to separate from adjacent vessels. Uncha nged from prior and not significantly changed from 2020. Other scattered small ground-glass nodules are noted in both upper lobes, right greater than left. Tracheobronchial tree: No bronchiectasis or mucous plugging. Mediastinum and Gala: No dominant adenopathy or fluid collection. Pleura: No effusion. No pneumothorax. Heart: The heart is mild dilated. No coronary artery calcifications are seen. Aorta: Thoracic aorta non-dilated. Mild atherosclerotic changes. Pulmonary arteries: Normal diameter. Upper abdomen: No acute findings. Bones: Minimal degenerative changes in the spine. Soft tissues: Unremarkable. IMPRESSION: Stable ground-glass nodule with 5 millimeter solid component in the right upper lobe. Recommend low-dose screening CT in 1 year. RADIATION DOSE DELIVERED: 471.49mGy.cm Total DLP DATA REPOSITORY: All CT scans at this facility are submitted to the National Radiology Data Registry (NRDR) Dose Index Registry (DIR) with the [employer] (ACR). RADIATION OPTIMIZATION: All CT scans at this facility use at least one of these dose optimization te chniques: automated exposure control; mA and/or kV adjustment per patient size (includes targeted exa ms where dose is matched to clinical indication); or iterative reconstruction.
== END ==
PROVIDERS: PCP Family Medicine; Visit Provider Student in an Organized Health Care Education/Training Program
DX: J98.4 Other disorders of lung (principal); R91.8 Other nonspecific abnormal finding of lung field
CPT/HCPCS: 71250

== ENCOUNTER → 2023-09-26 09:37 | Outpatient (BNVA) | payer MEDICARE, SELFPAY | PROVIDERS: PCP Family Medicine; Referring Provider Family Medicine; Visit Provider Physician Assistant Surgical | DX: R91.8 Other nonspecific abnormal finding of lung field (principal) | CPT/HCPCS: 99214 ==

== ENCOUNTER 2023-10-03 01:35 | Outpatient (CLI) | payer MEDICARE, SELFPAY ==
[2023-10-03 12:58] LABS: ALT 19 U/L (14-59); AST 13 U/L (15-37); Albumin 3.7 g/dL (3.4-5.0); Alkaline Phosphatase 82 U/L (46-116); Anion Gap 7.8 mmol/L (3-11); BUN 20 mg/dL (7-18); Bilirubin, Total 0.29 mg/dL (0.2-1.0); CO2 29.2 mmol/L (21.0-32.0); Calculated LDL 89 mg/dL (<100); Chloride 105 mmol/L (98-107); Cholesterol 155 mg/dL (<200); Estimated GFR 59.12 (mL/min/1.73m2); Glucose 133 mg/dL (74-106); HDL Cholesterol 47 mg/dL (40-60); Potassium 4.1 mmol/L (3.5-5.1); Sodium 142 mmol/L (136-145); TSH (W/Ref FT4) 1.68 uIU/mL (0.36-3.74); Total Protein 7.4 g/dL (6.4-8.2); Triglyceride 97 mg/dL (<150)
== END 2023-10-03 01:36 | disposition home or self-care (01) ==
LOC: LOS 01:35
PROVIDERS: PCP Family Medicine; Visit Provider Family Medicine
DX: Z13.6 Encounter for screening for cardiovascular disorders (principal); E11.9 Type 2 diabetes mellitus without complications; Z00.00 Encounter for general adult medical examination without abnormal findings; E05.90 Thyrotoxicosis, unspecified without thyrotoxic crisis or storm
CPT/HCPCS: 36415; 80053; 80061; 84443

== ENCOUNTER 2023-12-12 01:29 | Outpatient (CLI) | payer MEDICARE, SELFPAY ==
--- NOTE | 2023-12-12 06:45 | DI.MAMMO_ITS ---
Exam(s) MAMMO SCREENING EXAM: MAMMO SCREENING CLINICAL HISTORY: screening,Z12.39 TECHNIQUE: Mammograms were interpreted according to the usual protocol including computer analysis w [employer] CAD system, tomosynthesis and C-view imaging. COMPARISON: 2014 through 2021 FINDINGS: The breasts are composed of scattered fibroglandular densities, Breast Density category B. No suspicious masses or suspicious microcalcifications are seen. Bilateral biopsy marker clips. No skin thickening or abnormal axillary lymph nodes are seen. There has been no significant change from prior exams. IMPRESSION: BI-RADS Category 1, Negative mammogram Yearly screening mammography is recommended. Breast Density - Category B, scattered fibroglandular densities. A negative radiographic report should not delay biopsy if a dominant or clinically suspicious mass is present. Up to ten percent of cancers are not identified on mammography. A negative report may reinforce clinical impression. Adenosis and dense breasts may obscure an underlying neoplasm. False positive reports average 6 to 10%. Patient will receive a letter notifying them of these results.
== END 2023-12-12 01:49 ==
LOC: DI 01:29
PROVIDERS: PCP Family Medicine; Visit Provider Family Medicine
DX: Z12.31 Encounter for screening mammogram for malignant neoplasm of breast (principal)
CPT/HCPCS: 77063; 77067

== ENCOUNTER 2024-05-21 03:07 | Outpatient (CLI) | payer MEDICARE, SELFPAY ==
[2024-05-21 12:28] LABS: Hemoglobin A1C 6.7 % (<5.7)
[2024-05-21 13:02] LABS: COMMENT (LAB VIEW ONLY) 241.63 mg/dL; Microalb ug/mg Crea 7.5 ug/mg Cr
[2024-05-21 13:07] LABS: ALT 26 U/L (14-59); AST 17 U/L (15-37); Albumin 4.1 g/dL (3.4-5.0); Alkaline Phosphatase 96 U/L (46-116); Anion Gap 10.7 mmol/L (3-11); BUN 17 mg/dL (7-18); Bilirubin, Total 0.3 mg/dL (0.2-1.0); CO2 28.3 mmol/L (21.0-32.0); Calcium 9.3 mg/dL (8.5-10.1); Calculated LDL 94 mg/dL (<100); Chloride 104 mmol/L (98-107); Cholesterol 175 mg/dL (<200); Estimated GFR 59.12 (mL/min/1.73m2); Glucose 135 mg/dL (74-106); HDL Cholesterol 53 mg/dL (>or=50); Potassium 4.5 mmol/L (3.5-5.1); Sodium 143 mmol/L (136-145); TSH (W/Ref FT4) 0.74 uIU/mL (0.36-3.74); Total Protein 7.8 g/dL (6.4-8.2); Triglyceride 143 mg/dL (<150)
== END 2024-05-21 03:08 | disposition home or self-care (01) ==
LOC: LOS 03:07
PROVIDERS: PCP Family Medicine; Visit Provider Family Medicine
DX: E11.9 Type 2 diabetes mellitus without complications (principal); E03.9 Hypothyroidism, unspecified; E05.90 Thyrotoxicosis, unspecified without thyrotoxic crisis or storm
CPT/HCPCS: 36415; 80053; 80061; 82043; 82570; 83036; 84443

== ENCOUNTER 2024-06-27 09:30 | Outpatient (REF) | payer MEDICARE, SELFPAY ==
[2024-06-27 13:51] LABS: Bilirubin Negative (Negative); Blood Small (Negative); Clarity Sl Cloudy (Clear); Glucose Negative (Negative); Ketones Negative (Negative); Leukocyte Esterase Trace (Negative); Nitrite Positive (Negative); Urobilinogen 0.2 mg/dL (Up to 0.2); pH 5.5 (5-8)
[2024-06-27 13:58] LABS: Bacteria Moderate HPF (Negative); C & S Indicated? Yes; Casts 0-2 Hyaline LPF (Negative); Crystals Negative HPF (Negative); Epithelial Cells Few HPF (Negative); Mucus Negative (Negative)
== END 2024-06-27 09:31 | disposition home or self-care (01) ==
LOC: LBN 09:30
PROVIDERS: PCP Family Medicine; Visit Provider Nurse Practitioner Family
DX: R39.9 Unspecified symptoms and signs involving the genitourinary system (principal); B96.20 Unspecified Escherichia coli [E. coli] as the cause of diseases classified elsewhere
CPT/HCPCS: 87077; 81003; 81015; 87086; 87186

== ENCOUNTER 2024-12-17 01:14 | Outpatient (CLI) | payer MEDICARE, SELFPAY ==
--- NOTE | 2024-12-17 06:30 | DI.CTLCSR_ITS ---
Exam(s) CT CHEST LUNG CANCER SCREEN EXAM: CT CHEST LUNG CANCER SCREEN CLINICAL HISTORY: Screening for lung cancer,former cigarette smoker,z87.891 TECHNIQUE: Imaging Protocol: Axial computed tomography images with coronal and sagittal reformatted images were created and reviewed. Lung Computer Aided Detection (CAD) was utilized. COMPARISON: CT CT CHEST LUNG CANCER SCREEN from 03/08/[address] CHEST LUNG CANCER SCREEN from 03/27/[address] CHEST WO from 09/18/2023 FINDINGS: Tracheobronchial tree: Patent where visualized. No bronchiectasis. Pulmonary parenchyma: No consolidation or dominant measurable mass. No architectural distortion. There is a stable ground-glass opacity in the right upper lobe. Lung Nodules: There are no suspicious pulmonary nodules. There are no new pulmonary nodules. Mediastinum and Gala: No dominant adenopathy or fluid collection. The esophagus is unremarkable. Thyroid gland: There is a stable enlarged thyroid gland. Lymph nodes: Unremarkable. Pleura: No effusion or pneumothorax. Heart: The heart is mildly enlarged. No coronary artery calcifications are seen. No pericardial effusion. Aorta: Thoracic aorta non-dilated.Mild atherosclerotic calcification is present. Upper abdomen: Unremarkable. Soft Tissues: Unremarkable. Bones: Within normal limits. IMPRESSION: There are no suspicious pulmonary nodules. No new pulmonary nodules are present. Lung RADS Cat 2 - Benign Appearance / Behavior: Nodules with a very low likelihood of becoming a clinically active cancer due to size or lack of growth Lung-RADS 1.0 CATEGORIES: Category 0 - Prior chest CT exam(s) being located for comparison. Category 1 - Annual screening in 12 months. No nodules or definitely benign nodules. Category 2 - Annual screening in 12 months. Benign appearance. Nodules with low likelihood of becoming active cancer. Category 3 - 6-month follow-up. Probably benign. Short-term follow-up suggested. Nodules with low likelihood of becoming active cancer. Category 4A - 3-month follow-up and CT/PET if >8 mm in size. Suspicious finding. Findings which require additional testing. Category 4B - Findings which require additional testing and tissue sampling. Suspicious finding. Category 4X - Category 3 or 4 nodules with additional features or imaging findings that increases the suspicion of malignancy. Modifier S- Potentially clinically significant finding. (Non lung cancer) RADIATION DOSE DELIVERED: 29.81mGy.cm Total DLP 29.81mGy.cmTotal DLP DATA REPOSITORY: All CT scans at this facility are submitted to the National Radiology Data Registry (NRDR) Dose Index Registry (DIR) with the [employer] (ACR). RADIATION OPTIMIZATION: All CT scans at this facility use at least one of these dose optimization techniques: automated exposure control; mA and/or kV adjustment per patient size (includes targeted exams where dose is matched to clinical indication); or iterative reconstruction.
== END 2024-12-17 01:34 ==
PROVIDERS: PCP Family Medicine; Visit Provider Physician Assistant Surgical
DX: Z87.891 Personal history of nicotine dependence (principal)
CPT/HCPCS: 71271

== ENCOUNTER → 2024-12-23 09:14 | Outpatient (BNVA) | payer MEDICARE, SELFPAY | PROVIDERS: PCP Family Medicine; Referring Provider Family Medicine; Visit Provider Internal Medicine Pulmonary Disease | DX: R91.8 Other nonspecific abnormal finding of lung field (principal); F17.210 Nicotine dependence, cigarettes, uncomplicated | CPT/HCPCS: 99215 ==

== ENCOUNTER → 2025-02-21 01:16 | Outpatient (CLI) | payer MEDICARE, SELFPAY ==
--- NOTE | 2025-02-21 06:15 | DI.US_ITS ---
Exam(s) US THYROID EXAM: US THYROID CLINICAL HISTORY: thyroid nodule,e04.1. TECHNIQUE: Ultrasound thyroid performed using standard protocol. COMPARISON: CT CT CHEST WO from 09/18/[address] CHEST LUNG CANCER SCREEN from 12/17/2024 FINDINGS: ISTHMUS: 6 mm RIGHT LOBE: Size: 7.2 x 2.5 x 3.3 cm Echogenicity: Heterogeneous Vascularity: Normal. Nodules: 1. Upper pole solid isoechoic nodule 1.8 x 1.7 x 1.5 cm. Taller than wide peripherally calcified, TR 5. 2. Mid right lobe solid isoechoic nodule 2.1 x 1.1 x 2.0. No echogenic foci, wider than tall, smoothly marginated, TR 3. 3. 2.0 x 1.4 x 1.4 centimeter solid isoechoic nodule, wider than tall ill defined margins and punctate microcalcifications, TR 5. LEFT LOBE: Size: 5.7 x 2.4 x 3.7 cm Echogenicity: Heterogeneous Vascularity: Normal. Nodules: Upper pole 1.6 x 1.4 x 1.3 centimeter solid isoechoic nodule, wider than tall, indistinct margins without echogenic foci, TR 3. Lower pole solid nodule measuring 2.3 x 1.5 x 2 cm, isoechoic, wire than tall, ill-defined margins, TR 4. OTHER FINDINGS: None. IMPRESSION: Enlarged multinodular thyroid. There are bilateral TR 4 TR 5 nodules for which FNA is recommended. DATA REPOSITORY:
== END ==
LOC: DI 01:16
PROVIDERS: PCP Family Medicine; Visit Provider Family Medicine
DX: E04.1 Nontoxic single thyroid nodule (principal)
CPT/HCPCS: 76536

== ENCOUNTER 2025-02-21 01:38 | Outpatient (CLI) | payer MEDICARE, SELFPAY ==
[2025-02-21 11:04] LABS: TSH (W/Ref FT4) 1.06 uIU/mL (0.55-4.78)
== END 2025-02-21 01:39 | disposition home or self-care (01) ==
LOC: LBO 01:38
PROVIDERS: PCP Family Medicine; Visit Provider Family Medicine
DX: E03.9 Hypothyroidism, unspecified (principal); E05.90 Thyrotoxicosis, unspecified without thyrotoxic crisis or storm
CPT/HCPCS: 36415; 84443